=== PATIENT | male | born 1965 | race American Indian/Alaskan Native ===

== ENCOUNTER 2019-07-11 07:48 | Emergency (ER) | payer MEDICAID ==
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
--- NOTE | 2019-07-11 11:20 | Cat Scan Report ---
FACIAL CT 07/11/2019 HISTORY: Left ear trauma. Swelling. Decreased hearing. FINDINGS: CT images of the facial bones were obtained. There is no evidence of acute osseous injury. Soft tissue density is present within the left external auditory canal, consistent with the presence of cerumen or foreign material. Inner and middle ear structures are unremarkable. Paranasal sinuses are clear. There is evidence of some periodontal lucencies consistent with chronic/ or acute dental disease. IMPRESSION: No evidence of acute osseous injury. Soft tissue density material in left external audito ry canal. All CT scans at this location are performed using dose reduction to ALARA by means of automated expos ure control. Signer Name: Colt Feng MD Signed: 07/11/2019 11:15 AM Workstation Name: [id number]
[2019-07-11 11:54] VITALS: BP 118/81
== END 2019-07-11 11:53 | disposition home or self-care (01) ==
LOC: ED 07:48
DX: S09.91XA Unspecified injury of ear, initial encounter (principal); H61.22 Impacted cerumen, left ear; F17.200 Nicotine dependence, unspecified, uncomplicated; Z79.1 Long term (current) use of non-steroidal anti-inflammatories (NSAID); Z79.899 Other long term (current) drug therapy; W22.8XXA Striking against or struck by other objects, initial encounter; Y93.89 Activity, other specified; Y92.89 Other specified places as the place of occurrence of the external cause; Y99.8 Other external cause status
CPT/HCPCS: 70486

== ENCOUNTER 2020-01-20 16:40 | Emergency (ER) | payer MEDICAID ==
[2020-01-20 16:49] VITALS: BP 110/68
[2020-01-20 17:09] LABS: Basophils # (Auto) 0.1 K/mm3 (0.0-0.1); Basophils % (Auto) 0.6 % (0.0-1.8); Eosinophils # (Auto) 0.3 K/mm3 (0.0-0.4); Eosinophils % (Auto) 3.1 % (0.0-4.3); Hematocrit 37.4 % (35.5-45.6); Hemoglobin 13.3 gm/dl (11.8-15.2); Lymphocytes # (Auto) 2.6 K/mm3 (1.2-5.4); Lymphocytes % (Auto) 27.4 % (13.4-35.0); Mean Corpuscular HGB Conc 36 % (32-34); Mean Corpuscular Volume 89 fl (84-94); Monocytes # (Auto) 0.6 K/mm3 (0.0-0.8); Monocytes % (Auto) 6.4 % (0.0-7.3); Platelet Count 221 K/mm3 (140-440); Red Blood Count 4.22 M/mm3 (3.65-5.03); Red Cell Distribution Width 13.4 % (13.2-15.2)
[2020-01-20 17:28] LABS: Alanine Aminotransferase 10 units/L (7-56); Albumin 3.6 g/dL (3.9-5); BUN/Creatinine Ratio 18; Blood Urea Nitrogen 16 mg/dL (9-20); Hemolysis Index 7
[2020-01-20 17:55] LABS: Bilirubin,Urine NEG (Negative); Blood,Urine NEG (Negative); Color,Urine Yellow (Yellow); Protein,Urine <15 mg/dL mg/dL (Negative)
== END 2020-01-20 16:44 | disposition left against medical advice (07) ==
LOC: ED 16:40
DX: R10.9 Unspecified abdominal pain (principal); R11.2 Nausea with vomiting, unspecified; Z53.21 Procedure and treatment not carried out due to patient leaving prior to being seen by health care provider
CPT/HCPCS: 36415; 80053; 81001; 85025

== ENCOUNTER 2020-01-21 08:47 | Emergency (ER) | payer MEDICAID ==
[2020-01-21 08:54] VITALS: BP 105/73
[2020-01-21] MEDS ORDERED: ONDANSETRON 4 MG ODT TAB PO ONE (11:50)
[2020-01-21] MEDS ORDERED: FAMOTIDINE 20 MG TAB PO ONE (11:50)
[2020-01-21] MEDS ORDERED: HYOSCYAMINE SUBL 0.125 MG TAB SL ONE (11:50)
[2020-01-21] MEDS ORDERED: ALUM-MAG HYDROXIDE-SIMETHICONE 200-200-20MG/5ML ORAL LIQD 30 ML PO ONE (11:50)
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
== END 2020-01-21 12:19 | disposition home or self-care (01) ==
LOC: ED 08:47
DX: R10.10 Upper abdominal pain, unspecified (principal); R11.0 Nausea; K30 Functional dyspepsia; F17.200 Nicotine dependence, unspecified, uncomplicated; Z79.899 Other long term (current) drug therapy
CPT/HCPCS: 99282; Q0162